=== PATIENT | female | born 1965 | race Caucasian/White ===

== ENCOUNTER 2016-05-16 10:39 | Day surgery (SDC) | payer BC ==
--- NOTE | 2016-05-16 12:05 | Operative Note ---
Colonoscopy (Martha) Procedure date: 05/16/16 Date of : 65 Procedure:Colonoscopy Colonoscopy with cold snare polypectomy Indications: Mrs. Rg is a 50-year-old female who is here for initial screening colonoscopy. She does state that her first cousin had colon cancer. The patient does describe some irregular bowel function with alternating constipation and diarrhea over the last 6-12 months. The patient has had some intentional weight loss and had a gastric bypass in 2008. She reports no abdominal pain or rectal bleeding. Performing Provider: Gayla Thomas MD Referrring Provider: Quan Madrigal M.D. Sedation: Fentanyl 200 mg IV/Versed 9 mg IV Procedure: Prior to the procedure, a history and physical exam was performed, and patient medications and allergies were reviewed. The risks and benefits of the procedure and the sedation options and risks were discussed with the patient. All questions were answered and informed consent was obtained. Patient identification and proposed procedure were verified by the physician and the nurse. The patient was placed in a left lateral decubitus position. Throughout the procedure, the patient's blood pressure, pulse, and oxygen saturations were monitored continuously. Findings: On digital rectal examination there was normal rectal tone. There were no external hemorrhoids. The colonoscope was introduced through the anal canal to the rectum and advanced to the cecum. The ileocecal valve and appendiceal orifice were identified. The scope was advanced a short distance into the ileum which appeared grossly normal. The scope was then withdrawn into the colon. There were 4 colon polyps identified in the cecum 1 (flat and 12 mm diameter), transverse 2 and sigmoid 1. These ranged in size from 5-12 mm and were all removed via cold snare polypectomy. There were scattered diverticuli throughout the descending and sigmoid colon (LEFT colon). The rectum itself was normal. Upon retroflexion within the rectum there were grade 1 internal hemorrhoids. Impressions: 1. Colonic polyps 4 2. Mild left-sided diverticulosis 3. Grade 1 internal hemorrhoids Recommendations: I will follow up the polyp pathology and recommend repeat colonoscopy again in 3 years based upon the polyp histology. I would encourage fiber supplementation on a long-term daily maintenance basis. Complications: None EBL (ml): 0 at 1204
[2016-05-16 15:24] VITALS: BP 114/73
== END 2016-05-16 13:10 | disposition home or self-care (01) ==
LOC: SDC 10:39
PROVIDERS: Internal Medicine Gastroenterology
PROC: 0DBN8ZX Excision of Sigmoid Colon, Via Natural or Artificial Opening Endoscopic, Diagnostic (ICD-10-PCS; 2016-05-16)
PROC: 0DBL8ZX Excision of Transverse Colon, Via Natural or Artificial Opening Endoscopic, Diagnostic (ICD-10-PCS; 2016-05-16)
PROC: 0DBH8ZX Excision of Cecum, Via Natural or Artificial Opening Endoscopic, Diagnostic (ICD-10-PCS; principal; 2016-05-16 11:00)
DX: Z12.11 Encounter for screening for malignant neoplasm of colon (principal); D12.0 Benign neoplasm of cecum; D12.3 Benign neoplasm of transverse colon; D12.5 Benign neoplasm of sigmoid colon; K57.30 Diverticulosis of large intestine without perforation or abscess without bleeding; K64.0 First degree hemorrhoids

== ENCOUNTER → 2016-09-06 | Outpatient (CLI) | payer BC ==
--- NOTE | 2016-09-07 14:56 | RADIOLOGY REPORT PS360 ---
History and Indications: Chest pain, shortness of breath and family history. Procedure: Patient exercised on Joe protocol 7 minutes and 15 seconds, resting heart rate was 76 beats per resting blood pressure 139/67, with exercise maximum heart rate achieved was 1 43 bpm which is equal to 84% of the maximum predicted heart rate and a blood pressure was 160/70. Test was started due to shortness of breath patient denied complained of chest pain. Patient has good exercise capacity achieved 10.1mets of workload on treadmill, the blood pressure response to exercise was adequate. Electrocardiogram: Resting electrocardiogram showed sinus rhythm rightward axis, with exercise excessive baseline artifact seen, there is less than 1.[address] segment depression noted from the baseline EKG. The EKG portion of the exercise Myoview is nondiagnostic as patient did not achieve the target heart rate. Cardiac stress and resting SPECT images: Headache stress and the suspect images were obtained using technetium 99 Myoview 10.2 mCi at rest and 32.7 mCi at stress, gated SPECT further analysis of segmental wall motion and calculation of the ejection fraction also done. Cardiac stress and the suspect images show uniform myocardial activity without any segmental perfusion abnormality, computer derived ejection fraction is 58% with no obvious regional wall motion abnormality, right ventricle are normal size and contractility. Conclusion: 1. The EKG portion of the exercise Myoview is nondiagnostic as patient did not achieve the target heart rate, patient has good exercise capacity achieved 10.1mets of workload on treadmill, the blood pressure response to exercise was adequate. There was no exercise-induced chest discomfort. 2. No obvious scintigraphic evidence of reversible ischemia seen at this level of exercise, computer derived ejection fraction is 58% with no obvious regional wall motion abnormality, right ventricle is normal size and contractility.
== END ==
LOC: RAD 08-29 12:00
DX: R07.2 Precordial pain (principal)
CPT/HCPCS: A9502

== ENCOUNTER → 2016-12-02 | Outpatient (CLI) | payer BC ==
--- NOTE | 2016-12-04 14:45 | RADIOLOGY REPORT PS360 ---
MRI-L-SPINE W/O COMPARISON: Plain films lumbar spine 07/28/2016 HISTORY: Low back pain with particularly laterally TECHNIQUE: Standard axial and sagittal sequences were performed along with a myelogram sequence. FINDINGS: There is normal curvature and alignment. The marrow signal is normal in all lumbar vertebrae. Each lumbar disc appears normal with no definite disc protrusion. There are mild hypertrophic facet changes at L3-4 and L5-S1 levels and more prominent hypertrophic facet changes at L4-5 level particularly on the left side. There is no significant neural foraminal compromise however. The spinal canal is normal size throughout. The conus is normal. Mild rapid sequence is unremarkable. IMPRESSION: Prominent hypertrophic facet changes lower lumbar spine as described, no abnormal disc protrusion identified
== END ==
LOC: RAD 14:12
DX: M54.10 Radiculopathy, site unspecified (principal)

== ENCOUNTER 2017-02-10 09:25 | Day surgery (SDC) | payer BC ==
[~2017-02-10] VITALS: Ht 165.1 cm; Wt 81.6 kg
[~2017-02-10 09:25] MED LIST: ALLOPURINOL100 MG PO; NEXIUM40 MG PO; TRAMADOL 50MG T50 M1 PO; VALACYCLOVIR H500 M1 PO
[2017-02-10 09:33] VITALS: BP 126/72
[2017-02-10 10:01] VITALS: BP 126/72
[2017-02-10 10:03] VITALS: BP 130/80
[2017-02-10 10:10] VITALS: BP 115/68
--- NOTE | 2017-02-10 10:10 | Procedure Note ---
Procedure detail Date of procedure: 02/10/17 Anesthesiologist: Newton Ellington Complications: None Pre-procedure diagnosis: LEFT sacroiliitis Post-procedure diagnosis: Same Indications for procedure: Very pleasant 51-year-old white female that presents to our procedure clinic today for LEFT SI joint injection. Patient has extreme point tenderness over the LEFT SI joint upon examination. She describes pain as constant, sharp, stabbing at times. Pain intensifies with sitting for any length of time. Standing for any length time. Procedure detail: Procedure: Left sacroiliac injection under fluoroscopy Informed consent was obtained and the risk and benefits of the procedure were explained to the patient.~ The patient was taken to the procedure room and noninvasive monitors were placed including noninvasive blood pressure cuff and pulse oximeter.~ The patient was placed prone on the procedure table.~ The~ left hip was cleansed using Betadine as a cleansing solution.~ C-arm fluorosocpy was used to view the left SI joint.~ The skin and subcutaneous tissues were anesthetized using Lidocaine 1.5% and a 25-gauge needle.~ After this, a 22-gauge spinal needle was inserted under fluoroscopic guidance into the inferior aspect of the left SI joint.~ Omnipaque dye was injected and a good spread was seen throughout the joint.~ After this, approximately 5 mL of bupivacaine 0.25% and Depo-Medrol 40 mg was incrementally injected into the sacroiliac joint.~ The patient tolerated the procedure well with no complications.~ The patient was observed in the Pain Clinic for a period of 30-45 minutes, then discharged home neurologically intact.~ Plan and disposition: Patient was reevaluated 10 minutes post procedure. She is doing very well. She reports 90 percent improvement in terms of her LEFT hip pain. at 1004
--- NOTE | 2017-02-13 07:22 | RADIOLOGY REPORT PS360 ---
MRI-UP EXT ANY JNT W/O-LT HISTORY: ACUTE PAIN OF LEFT SHOULDER ORDERING PHYSICIAN: BEATRICE BENITEZ CRNA PATIENT AGE: 51 years COMPARISON: None TECHNIQUE: Standard multiplanar multiecho sequences are performed without contrast. FINDINGS: There is thickening of this supinators tendon with increased T2 signal consistent with tendinopathy/tendinosis. No definite rotator cuff tear. The infraspinatus, subscapularis, and teres minor tendons appear intact. The acromioclavicular joint shows mild hypertrophy with some mild impingement upon the musculotendinous junction of the supraspinatus. No fracture or dislocation is evident. The bicipital tendon is in place. No obvious labral tear. No fracture or dislocation or significant effusion. IMPRESSION: 1. Tendinopathy/tendinosis of the supraspinatus tendon. 2. Mild acromioclavicular arthropathy with mild impingement upon the musculotendinous junction of the supraspinatus. 3. No evidence of rotator cuff tear.
== END 2017-02-10 10:11 | disposition home or self-care (01) ==
LOC: RAD 09:25 → PM 09:25
PROC: 3E0U33Z Introduction of Anti-inflammatory into Joints, Percutaneous Approach (ICD-10-PCS; principal; 2017-02-10)
PROC: 3E0U3BZ Introduction of Anesthetic Agent into Joints, Percutaneous Approach (ICD-10-PCS; 2017-02-10)
DX: M46.1 Sacroiliitis, not elsewhere classified (principal)
CPT/HCPCS: G0260; J1040